=== PATIENT | male | born 1980 | race Caucasian/White ===

== ENCOUNTER → 2022-07-08 10:12 | Outpatient (BNVA) | payer OTHER, SELFPAY | PROVIDERS: Visit Provider Family Medicine | DX: M10.9 Gout, unspecified (principal); M70.22 Olecranon bursitis, left elbow; Z13.220 Encounter for screening for lipoid disorders; Z68.34 Body mass index [BMI] 34.0-34.9, adult | CPT/HCPCS: 80053; 84550; 85025 ==

== ENCOUNTER → 2022-07-23 10:56 | Outpatient (BNVA) | payer OTHER, SELFPAY | PROVIDERS: Referring Provider Family Medicine; Visit Provider Orthopaedic Surgery | DX: M70.22 Olecranon bursitis, left elbow (principal); R22.32 Localized swelling, mass and lump, left upper limb | CPT/HCPCS: 73080 ==